=== PATIENT | male | born 1960 | race Two or more races ===

== ENCOUNTER 2024-10-10 05:34 | Emergency (ER) | payer BC ==
[~2024-10-10] VITALS: Ht 175.3 cm; Wt 88.9 kg
[2024-10-10] MEDS ORDERED: FAMOTIDINE/PF 20 MG/2 ML VIAL IV PUSH STA (06:14)
[2024-10-10] MEDS ORDERED: 0.9 % SODIUM CHLORIDE 1,000 ML IV ONE (06:15)
[2024-10-10] MEDS ORDERED: ONDANSETRON HCL 2 MG/ML VIAL IV STA (06:15)
[2024-10-10 06:44] LABS: HEMATOCRIT 44.7 % (39.0-48.0); HEMOGLOBIN 15.4 g/dL (13-16.00); MEAN CELL VOLUME 95.9 fL (80.0-100.00); MEAN CORPUSCULAR HEMOGLOBIN 33.1 pg (27.00-32.0); MEAN CORPUSCULAR HGB CONC 34.5 g/dl (32.0-36.0); PLATELET COUNT 175 K/uL (150-450); RED BLOOD COUNT 4.66 M/uL (4.00-6.00); RED CELL DISTRIBUTION WIDTH 12.8 % (11.5-14.5)
[2024-10-10 06:58] LABS: ALBUMIN 3.9 gm/dL (3.4-5.0); BILIRUBIN TOTAL 0.7 mg/dL (0.3-1.2); CALCIUM 8.3 mg/dL (8.5-10.1); CREATININE SERUM 1.21 mg/dL (0.70-1.30); GFR 60.96; GLOBULINA 3.1 G/DL (2.4-3.5); POTASSIUM 4.38 mEq/L (3.5-5.1)
[2024-10-10 07:07] LABS: INR 1.03; PARTIAL THROMBOPLASTIN TIME 25.7 SECONDS (22.0-34.0); PROTHROMBIN TIME 11.2 SECONDS (9.0-11.5)
[2024-10-10] MEDS ORDERED: ACETAMINOPHEN 500 MG GEL..CAP PO STA (09:06)
[2024-10-10 09:29] LABS: PH,URINE 5.5 (5.0-8.0); URINE APPEARANCE Clear; URINE BILIRRUBIN Negative (NEGATIVE); URINE BLOOD Negative; URINE COLOR Dark Yellow; URINE GLUCOSE Negative (NEGATIVE); URINE KETONE Trace (NEGATIVE); URINE LEUKOCYTE Negative; URINE NITRATE Negative; URINE PROTEIN Negative (NEGATIVE); URINE UROBILINOGEN 0.2 E.U./dl
[2024-10-10 09:40] LABS: URINE BACTERIA 49.1 uL (0.0-1933); URINE EPITHELIAL CELLS 2.7 uL (0.0-38.8); URINE RBC 7.3 uL (0.0-20.8)
[2024-10-10 09:59] LABS: URINE WBC 1.3 uL (0.0-23.2)
[2024-10-10 11:07] LABS: FECAL LEUKOCYTES NEGATIVE (NEGATIVE); ob POSITIVE (NEGATIVE)
== END 2024-10-10 14:51 | disposition home or self-care (01) ==
LOC: ER 05:36
PROVIDERS: General Practice
DX: K92.0 Hematemesis (principal); K92.1 Melena; K57.30 Diverticulosis of large intestine without perforation or abscess without bleeding